=== PATIENT | female | born 1995 | race Caucasian/White ===

== ENCOUNTER 2020-01-14 08:31 | Outpatient (CLI) | payer BC, SELFPAY ==
[2020-01-15 12:40] LABS: COVID-19 RT-PCR Result NEGATIVE (Negative)
== END 2020-01-14 08:51 ==
PROVIDERS: PCP Nurse Practitioner; Visit Provider Otolaryngology Otolaryngology/Facial Plastic Surgery
DX: Z11.59 Encounter for screening for other viral diseases (principal); Z01.818 Encounter for other preprocedural examination
CPT/HCPCS: U0003

== ENCOUNTER 2020-01-17 06:13 | Day surgery (SDC) | payer BC, SELFPAY ==
[2020-01-17] VITALS (8 sets, daily range): BP systolic 88–156; BP diastolic 37–89; PULSE 94–119; RESP 17–20; TEMP 36.5–37.2; O2SAT 93–99
[2020-01-17] MEDS: Lactated Ringers 1,000 ML 60 ML IV ×2 (06:54→07:56)
--- NOTE | 2020-01-17 07:38 | W.PM.DSUDISC ---
Discharge Plan Disposition Patient Disposition: HOME Condition: Good Discharge Details Attending Provider: Liam Rangel Primary Care Provider: Ariadne Donald Home Meds and New Rx's Prescriptions: No Action Mirena 20 mcg/24 hours (5 yrs) 52 mg Intrauterine Device 1 device INTRAUTERINE ONCE RF: 0 Discharge Instructions Additional Instructions: see sheet Activity:: Activity as Tolerated Shower/Bathe:: 24 hours Diet:: As Tolerated
[2020-01-17] MEDS: Oxymetazolone 0.05% SPRAY 15 ML BTL (07:56)
--- NOTE | 2020-01-17 08:00 | TONSIL_PTH ---
PATIENT: GERALD VOGEL LOC: [facility] U#:[id number] AGE/SX: 24/F ROOM: RE01/17/[address]: Liam Rangel DO : 1995 BED: DIS: 01/17/2020 SPEC #: [id number] RECD: 01/17/20 12:40 STATUS: MARIBEL REQ #: [id number] NATASHA: 01/17/20 08:[address]: Liam Rangel DEPT: Surgical Specimen RECD BY: Annabelle Knight ENTERED: 01/17/20 12:41 SP TYPE: TONSIL OTHR DR: Ariadne Donald Tissues: 1 - TONSIL AGE 17 & OVER 2 - TONSIL AGE 17 & OVER Procedures: GROSS AND MICRO LEVEL 3 Comments: [id number]
--- NOTE | 2020-01-17 08:24 | ROE_ITS ---
Date of service: 01/17/20 Operative Note Operative Note DATE OF PROCEDURE: 01/17/20 PRE-OP DIAGNOSIS: Chronic halitosis, chronic tonsillitis POST-OP DIAGNOSIS: same PROCEDURE: Tonsillectomy SURGEON: Liam Rangel ANESTHESIA: GETA ESTIMATED BLOOD LOSS: 2 PATHOLOGY: other (3+ tonsils ) COMPLICATIONS: None Patient was transported to: PACU Patient's condition: stable Indications: Pleasant 24-year-old female who presents with chronic recurring tonsillar inflammation, tonsil stones and halitosis. Decision is made for her to proceed with surgery Findings: Bilateral tonsillar stones, cryptic tonsils, restricted oropharynx, oropharyngeal redundancy, obesity, ASA 3 Procedure Description: PROCEDURE IN DETAIL: Patient was brought back to the operating suite in stable condition, placed supine on the operating table, and intubated in normal fashion. The table was rotated 90 degrees. There was no evidence of submucosal clefting or bifid uvula. Patient had increased body habitus, large neck with limited extension, ASA 3, difficult dissection with increased technical difficulty for tonsillectomy. Widespread tonsil stones evident. The McIvor retractor was placed in the oral cavity and suspended from the Suarez stand With contact acid plant operator due to patient's body habitus. The right tonsil was grasped in the superior pole and medialized. Pinpoint cautery was used to develop the peritonsillar fascial plane, dissection was carried out to the upper and mid portions of the tonsil with final amputation conducted with suction cautery. There was no bleeding within the right tonsillar fossa. Next, the left tonsil was grasped in the superior pole with a curved Allis forceps and medialized. Pinpoint cautery was used to develop the peritonsillar fascial plane. Dissection was carried out in the plane in the superior and mid portion of the tonsils. Final amputation was conducted with suction cautery without bleeding within left fossa, Valsalva was performed without bleeding. TMJ's were checked and were free of dislocation. Gastric contents suctioned. The patient tolerated the procedure well and went to PACU in stable condition
== END 2020-01-17 11:22 | disposition home or self-care (01) ==
PROVIDERS: PCP Nurse Practitioner; Visit Provider Otolaryngology Otolaryngology/Facial Plastic Surgery
PROC: (CPT 42826; principal; 2020-01-17 07:30)
DX: J35.01 Chronic tonsillitis (principal); R19.6 Halitosis
CPT/HCPCS: 42826; 81025; 88304; J1100; J2250; J2405; J2704